=== PATIENT | female | born 1970 | race Caucasian/White ===

== ENCOUNTER 2016-11-16 20:57 | Emergency (ER) | payer BC ==
[2016-11-16] MEDS ORDERED: PHENAZOPYRIDINE 100 MG TABLET PO ONE ×2 (21:25→21:38)
[2016-11-16] MEDS ORDERED: SULFAMETHOXAZOLE/TMP DS PREPAC 1 TAB TAB PO ONE ×2 (21:25→21:27)
[2016-11-16] MEDS ORDERED: SULFAMETHOXAZOLE/TMP 800/160MG 1 EA TABLET PO ONE (21:38)
--- NOTE | 2016-11-16 22:37 | ER NURSING DOCUMENTATION ---
Nurse's Notes [facility] Name:Venus Gómez Age:46 yrs Sex:Female :1970 Arrival Date:11/16/2016 Time:20:57 Bed3 Private MD: Diagnosis:Bladder Infection (UTI) Presentation: 11/16 21:04 Presenting complaint: Patient states: Burning and frequency on urination. Transition of [facility] care: Home. 21:04 Method Of Arrival: Walk In [facility] 21:04 Acuity: FILOMENA 4 4 Triage Assessment: 21:33 General: Appears in no apparent distress, Behavior is cooperative. Pain: Complains of [facility] pain in groin Pain does not radiate. EENT: No deficits noted. Neuro: No deficits noted. Cardiovascular: Chest pain is denied. Respiratory: Airway is patent Respiratory effort is even, unlabored, Respiratory pattern is regular, symmetrical. GI: No deficits noted. : Reports burning with urination urgency urinary frequency. Derm: No deficits noted. Musculoskeletal: No deficits noted. Historical: - Allergies: No known drug Allergies; - Home Meds: 1. None - Tetanus: < 10 years. - Ebola Screening: : No symptoms or risks identified at this time. . - Immunization history: Flu Vaccine < 1 year. - Social history: Smoking status: Patient states was never smoker of tobacco. Screenin:37 Infectious Disease Risk None. Abuse screen: Denies injuries from another. 4 22:00 Nutritional screening: No deficits noted. [facility] Assessment: 21:37 See Triage Assessment done by same RN. 4 Vital Signs: 21:05 BP 128 / 77; Pulse 88; Resp 14; Temp 98.0; Pulse Ox 95% on R/A; Weight 72.57 kg; Height em1 5 ft. 7 in. (170.18 cm); Pain 2/10; 21:50 BP 125 / 65; Pulse 77; Resp 18; Pulse Ox 92% ; Pain 2/10; mk4 21:05 Body Mass Index 25.06 (72.57 kg, 170.18 cm) em1 ED Course: 20:59 Patient arrived in ED. em3 21:03 Sabiha Alexander is Primary Nurse. mk4 21:05 Triage completed. mk4 21:05 John Sam MD is Attending Physician. cd 21:06 Urine collected. Clean catch specimen. em1 21:36 Arm band placed on Bed in low position Call Light in [place]. Urine obtained. mk4 21:38 Valuables Remains with patient. mk4 Administered Medications: 21:35 Drug: Pyridium 100 mg; Route: PO; mk4 22:33 Follow up: Response: No adverse reaction mk4 21:36 Drug: Bactrim 160 mg-800 mg (DS) 2 tabs; Route: PO; mk4 22:33 Follow up: Response: No adverse reaction; Only one tab taken orally now. Other one sent mk4 in prepak to go. 22:00 Drug: Bactrim (160 mg-800 mg (DS) 1 tabs; Route: PO; mk4 22:32 Follow up: Response: Pharmacy closed - take home med pack mk4 22:00 Drug: Pyridium - Phenazopyridine 200mg 100 mg; Route: PO; mk4 22:32 Follow up: Response: Pharmacy closed - take home med pack mk4 Point of Care Testing: Urine Dip: 21:12 pH: 7.0; ; Specific [place]: 1.020; Ketones: Negative; Glucose: Negative; Protein: em1 Negative; Leukocytes: Trace; Nitrite: Negative ; Blood: Non Hemolyzed Trace; Bilirubin: Negative ; Urobilinogen: Normal Intake: Outcome: 21:09 Discharge ordered by . gomez 21:50 Discharged to home ambulatory. mk4 21:50 Condition: good 21:50 Discharge Assessment: Patient awake, alert and oriented x 3. No cognitive and/or functional deficits noted. Patient verbalized understanding of disposition instructions. 21:50 Discharge instructions given to patient, Instructed on discharge instructions, follow up and referral plans. medication usage, Demonstrated understanding of instructions, medications, Prescriptions given X 2. 22:36 Patient left the ED. 4 11/17 13:46 Discharge F/U Call: Spoke with: patient. Are you having any pain? no. Have you filled lc your prescriptions? yes. Did your discharge instructions answer all of your questions? yes Overall Care on a scale of 1-10 with 10 being the best care, you rate our care as: Other comments: FEELING MUCH BETTER, HAS NO CONCERNS Signatures: Lorene Ball RN RN John Mayorga MD MD cd [facility] campusDebbie arayamarshal em1 Rufus [place] em3 Benjamin, Sabiha mk4
--- NOTE | 2016-11-16 22:37 | ER PHYSICIAN DOCUMENTATION ---
Physician Documentation [facility] Name:Venus Gómez Age:46 yrs Sex:Female :1970 Arrival Date:11/16/2016 Time:20:57 Bed3 Private MD: John Burk Disposition: 11/16 21:17 Chart complete. cd Disposition: 11/16/16 21:09 Discharged to Home/Self Care. Impression: Bladder Infection (UTI). - Condition is Good. - Discharge Instructions: BLADDER INFECTION, Female (Adult). - Prescriptions for Pyridium 200 mg Oral tablet - take 1 tablet by ORAL route 3 times per day; 15 tablet. Bactrim DS 160- 800 mg Oral Tablet - take 1 tablet by ORAL route every 12 hours for 3 days; 6 tablet. - Medical Reconciliation form form. - Follow up: Private Physician; When: 7 - 10 days; Reason: Worsening of condition, Recheck today's complaints, Continuance of care. - Problem is new. - Symptoms are unchanged. - Notes: Drink 2 - 3 quarts of water every day. Take Bactrim DS until gone. Take Pyridium when needed. HPI: 21:07 This 46 yrs old Female presents to ER via Walk In with complaints of Pain cd With Urination. 21:07 The patient presents with urinary symptoms, dysuria, frequency, urgency. Onset: The cd symptoms/episode began/occurred acutely, today. Associated signs and symptoms: The patient has no apparent associated signs or symptoms, Pertinent negatives: vomiting, back pain. Severity of symptoms: At their worst the symptoms were mild, in the emergency department the symptoms are unchanged. Historical: - Allergies: No known drug Allergies; - Home Meds: 1. None - Tetanus: < 10 years. - Ebola Screening: : No symptoms or risks identified at this time. . - Immunization history: Flu Vaccine < 1 year. - Social history: Smoking status: Patient states was never smoker of tobacco. ROS: 21:07 Positive for urinary symptoms, urinary frequency, burning with urination. cd 21:07 Constitutional: Negative for chills, fever. 21:07 Back: Negative for pain at rest. Exam: 21:08 Constitutional: The patient appears alert, awake, anxious. cd 21:08 Abdomen/GI: Palpation: abdomen is soft and non-tender. 21:08 Back: CVA tenderness, is absent, is noted bilaterally. 21:08 : Exam negative for acute changes. Vital Signs: 21:05 BP 128 / 77; Pulse 88; Resp 14; Temp 98.0; Pulse Ox 95% on R/A; Weight 72.57 kg; Height em1 5 ft. 7 in. (170.18 cm); Pain 2/10; 21:50 BP 125 / 65; Pulse 77; Resp 18; Pulse Ox 92% ; Pain 2/10; mk4 21:05 Body Mass Index 25.06 (72.57 kg, 170.18 cm) em1 MDM: 21:05 Patient medically screened. cd 21:08 Differential diagnosis: urinary tract infection. Data reviewed: vital signs, nurses cd notes, old medical records, lab test result(s), urinalysis, and as a result, I will discharge patient. Data interpreted:. Counseling: I had a detailed discussion with the patient and/or guardian regarding: the historical points, exam findings, and any diagnostic results supporting the discharge/admit diagnosis, lab results, the need for outpatient follow up, with the patient's primary care provider, to return to the emergency department if symptoms worsen or persist or if there are any questions or concerns that arise at home. 11/16 21:06 Order name: Urine Dip; Complete Time: 22:34 cd Dispensed Medications: 21:35 Drug: Pyridium 100 mg; Route: PO; mk4 22:33 Follow up: Response: No adverse reaction mk4 21:36 Drug: Bactrim 160 mg-800 mg (DS) 2 tabs; Route: PO; mk4 22:33 Follow up: Response: No adverse reaction; Only one tab taken orally now. Other one sent mk4 in prepak to go. 22:00 Drug: Bactrim (160 mg-800 mg (DS) 1 tabs; Route: PO; mk4 22:32 Follow up: Response: Pharmacy closed - take home med pack mk4 22:00 Drug: Pyridium - Phenazopyridine 200mg 100 mg; Route: PO; mk4 22:32 Follow up: Response: Pharmacy closed - take home med pack mk4 Point of Care Testing: Urine Dip: 21:12 pH: 7.0; ; Specific [place]: 1.020; Ketones: Negative; Glucose: Negative; Protein: em1 Negative; Leukocytes: Trace; Nitrite: Negative ; Blood: Non Hemolyzed Trace; Bilirubin: Negative ; Urobilinogen: Normal Signatures: John Sam MD MD cd King, Melody mk4
== END 2016-11-16 22:36 | disposition home or self-care (01) ==
LOC: ER 20:57
DX: N39.0 Urinary tract infection, site not specified (principal)
CPT/HCPCS: 99283